=== PATIENT | female | born 1950 | race African-American/Black ===

== ENCOUNTER → 2018-04-09 | Outpatient (CLI) | payer MEDICARE, MEDICAID | END | disposition home or self-care (01) | LOC: MRI 09:43 | PROVIDERS: ATTEND Internal Medicine Nephrology | DX: Z12.31 Encounter for screening mammogram for malignant neoplasm of breast (principal); M47.896 Other spondylosis, lumbar region; M48.061 Spinal stenosis, lumbar region without neurogenic claudication; M54.32 Sciatica, left side | CPT/HCPCS: 72148; 72195; 77067 ==

== ENCOUNTER 2019-10-01 13:44 | Inpatient (IN) | payer MEDICARE ==
[~2019-10-01] VITALS: Ht 157.5 cm; Wt 85.3 kg
[2019-10-01] MEDS ORDERED: SODIUM CHLORIDE 0.9% 500 ML IV ONE (15:01)
[2019-10-01] MEDS ORDERED: HYDROCODONE/ACETAMINOPHEN 10/325MG TABLET PO ONE (15:15)
[2019-10-01] MEDS ORDERED: ASPIRIN 81MG TABLET PO ONE (15:15)
[2019-10-01 16:40] LABS: BASOPHILS % 0.5 % (0.0-2.0); EOSINOPHILS % 3.3 % (0.0-5.0); HEMATOCRIT. 41.5 % (36.0-48.0); HEMOGLOBIN. 13.2 g/dL (12.0-16.0); LYMPHOCYTES % 29.3 % (20.0-50.0); MEAN PLATELET VOLUME 9.5 fl (7.4-10.4); MONOCYTES % 7.5 % (2.0-8.0); NEUTROPHILS % 59.4 % (40.0-76.0); PLATELET 269 x1000/uL (130-400); RED BLOOD CELL COUNT 4.56 mill/uL (4.2-5.4)
[2019-10-01 16:46] LABS: CHLORIDE 108 mEq/L (98-107)
[2019-10-01] MEDS ORDERED: LORAZEPAM 2MG/ML CPJ IV PRN (23:00)
[2019-10-01] MEDS ORDERED: CLONIDINE 0.1MG TABLET PO PRN (23:00)
[2019-10-01] MEDS ORDERED: IPRATROPIUM/ALBUTEROL 0.5-3(2.5)MG/3ML NEB NEB PRN (23:00)
[2019-10-01] MEDS ORDERED: ENOXAPARIN 40MG/0.4ML SYR SUBCUT SCH (23:00)
[2019-10-01] MEDS ORDERED: ONDANSETRON HCL 4MG/2ML INJ IV PRN (23:00)
[2019-10-01] MEDS ORDERED: MORPHINE SULFATE 2 MG/ML CPJ (NOT FOR IM USE) IV PRN (23:25)
[2019-10-01] MEDS: METHYLPREDNISOLONE SOD SUCC 125 MG/2 ML VIAL IV SCH (23:39)
[2019-10-01] MEDS: HYDROCODONE/ACETAMINOPHEN 5/325MG TABLET PO PRN (23:39)
[2019-10-02] MEDS: HYDROCODONE/ACETAMINOPHEN 5/325MG TABLET PO PRN ×3 (04:50→21:56)
[2019-10-02 06:34] LABS: CREATINE KINASE 66 IU/L (26-192)
[2019-10-02 06:35] LABS: CREATINE KINASE MB FRACTION < 1.0 ng/mL (0.5-3.6)
[2019-10-02 14:00] VITALS: BP 99/46
[2019-10-02 14:23] VITALS: BP 99/46
[2019-10-02] MEDS: METHYLPREDNISOLONE SOD SUCC 125 MG/2 ML VIAL IV SCH ×3 (15:09→18:00)
[2019-10-02] MEDS: ENOXAPARIN 40MG/0.4ML SYR SUBCUT SCH (15:10)
[2019-10-02 16:00] VITALS: BP 101/46
[2019-10-02] MEDS ORDERED: ISOS20TA57 PO (16:06)
[2019-10-02] MEDS ORDERED: ALBU18HF2 IH (16:06)
[2019-10-02] MEDS ORDERED: FURO40TA5 MT (16:06)
[2019-10-02] MEDS ORDERED: ISOS120T9 PO (16:06)
[2019-10-02] MEDS ORDERED: ASPI-1497 MT (16:06)
[2019-10-02] MEDS ORDERED: CELE200C MT (16:06)
[2019-10-02] MEDS ORDERED: LISI10TA5 MT (16:06)
[2019-10-02] MEDS ORDERED: SIMV40TA2 MT (16:06)
[2019-10-02 16:57] LABS: CREATINE KINASE 66 IU/L (26-192)
[2019-10-02 17:00] LABS: CREATINE KINASE MB FRACTION < 1.0 ng/mL (0.5-3.6)
[2019-10-02 20:00] VITALS: BP 107/38
[2019-10-02] MEDS: HYDROCORTISONE 1% CREAM 30GM TOP SCH (21:53)
[2019-10-03] VITALS: BP 100/33
[2019-10-03] MEDS: METHYLPREDNISOLONE SOD SUCC 125 MG/2 ML VIAL IV SCH ×2 (00:16→06:11)
[2019-10-03 04:00] VITALS: BP 116/37
[2019-10-03] MEDS ORDERED: DEXTROSE 50% WATER 50ML SYRINGE IV PRN (05:45)
[2019-10-03] MEDS: BLOOD SUGAR DIAGNOSTIC STRIP TEST SCH ×4 (06:22→21:00)
[2019-10-03] MEDS: INSULIN LISPRO 100 UNITS/ML SUBCUT SCH ×4 (06:22→21:00)
[2019-10-03] MEDS: HYDROCODONE/ACETAMINOPHEN 5/325MG TABLET PO PRN ×2 (06:35→10:51)
[2019-10-03 07:43] LABS: HEMATOCRIT. 41.3 % (36.0-48.0); HEMOGLOBIN. 13.4 g/dL (12.0-16.0); LYMPHOCYTES % 11.4 % (20.0-50.0); MEAN CORPUSCULAR HEMOGLOBIN 29.3 pg (28.0-32.0); MEAN CORPUSCULAR VOLUME 90.2 fL (81.0-99.0); MEAN PLATELET VOLUME 9.6 fl (7.4-10.4); MONOCYTES % 2.3 % (2.0-8.0); NEUTROPHILS % 86.3 % (40.0-76.0); PLATELET 279 x1000/uL (130-400); RED BLOOD CELL COUNT 4.58 mill/uL (4.2-5.4); RED CELL DISTRIBUTION WIDTH 15.8 % (11.6-14.6)
[2019-10-03 08:00] VITALS: BP 109/44
[2019-10-03 08:19] LABS: PHOSPHORUS 3.1 mg/dL (2.5-4.9)
[2019-10-03] MEDS ORDERED: AMLODIPINE 10MG TABLET PO SCH (09:00)
[2019-10-03] MEDS: ENOXAPARIN 40MG/0.4ML SYR SUBCUT SCH (09:15)
[2019-10-03] MEDS: HYDROCORTISONE 1% CREAM 30GM TOP SCH ×2 (09:15→22:10)
[2019-10-03 12:00] VITALS: BP 106/50
[2019-10-03] MEDS ORDERED: HYDRALAZINE 20MG/ML VIAL IV PRN (15:15)
[2019-10-03] MEDS ORDERED: ACETAMINOPHEN 650MG SUPP PR PRN (15:15)
[2019-10-03] MEDS ORDERED: BISACODYL 10MG SUPP PR PRN (15:15)
[2019-10-03] MEDS ORDERED: GUAIFENESIN 200MG/10ML SUGAR FREE UDC PO PRN (15:15)
[2019-10-03 16:00] VITALS: BP 123/47
[2019-10-03] MEDS: METHYLPREDNISOLONE SOD SUCC 40 MG/ML VIAL IV SCH (16:49)
[2019-10-03] MEDS: NYSTATIN POWDER 15GM TOP SCH (17:00)
[2019-10-03] MEDS: CEFTRIAXONE 1 G PREMIX 50 ML IV SCH (17:01)
[2019-10-03 17:03] LABS: CLARITY URINE CLEAR (CLEAR); COLOR URINE YELLOW (YELLOW); KETONES URINE NEGATIVE (NEGATIVE); LEUKOCYTE ESTERASE URINE TRACE (NEGATIVE); NITRITE URINE NEGATIVE (NEGATIVE); OCCULT BLOOD URINE TRACE (NEGATIVE); PROTEIN URINE NEGATIVE (NEGATIVE); SPECIFIC GRAVITY URINE 1.009 (1.005-1.030); UROBILINOGEN URINE 0.2 E.U./dL (0.2-1.0)
[2019-10-03 20:00] VITALS: BP 148/62
[2019-10-04] VITALS: BP 153/71
[2019-10-04 01:13] LABS: PROTHROMBIN TIME 10.2 sec (9.6-11.0)
[2019-10-04] MEDS: METHYLPREDNISOLONE SOD SUCC 40 MG/ML VIAL IV SCH ×2 (03:21→16:27)
[2019-10-04 04:00] VITALS: BP 118/46
[2019-10-04] MEDS: INSULIN LISPRO 100 UNITS/ML SUBCUT SCH ×3 (06:52→16:47)
[2019-10-04] MEDS: BLOOD SUGAR DIAGNOSTIC STRIP TEST SCH ×3 (06:52→16:27)
[2019-10-04 08:00] VITALS: BP 100/61
[2019-10-04 08:14] LABS: HEMATOCRIT. 40.4 % (36.0-48.0); HEMOGLOBIN. 13.1 g/dL (12.0-16.0); LYMPHOCYTES % 8.6 % (20.0-50.0); MEAN CORPUSCULAR VOLUME 89.4 fL (81.0-99.0); MEAN PLATELET VOLUME 9.7 fl (7.4-10.4); MONOCYTES % 3.1 % (2.0-8.0); NEUTROPHILS % 88.3 % (40.0-76.0); PLATELET 260 x1000/uL (130-400); RED BLOOD CELL COUNT 4.52 mill/uL (4.2-5.4); RED CELL DISTRIBUTION WIDTH 15.7 % (11.6-14.6)
[2019-10-04 08:46] LABS: T4 FREE 0.78 ng/dL (0.76-1.46)
[2019-10-04] MEDS: ENOXAPARIN 40MG/0.4ML SYR SUBCUT SCH (09:28)
[2019-10-04] MEDS: HYDROCORTISONE 1% CREAM 30GM TOP SCH ×2 (09:28→20:59)
[2019-10-04 12:00] VITALS: BP 114/50
[2019-10-04] MEDS: NYSTATIN POWDER 15GM TOP SCH ×2 (12:08→16:31)
[2019-10-04] MEDS: CEFTRIAXONE 1 G PREMIX 50 ML IV SCH (14:20)
[2019-10-04 16:00] VITALS: BP 131/51
[2019-10-04] MEDS: ACETAMINOPHEN 325MG TABLET PO PRN (16:27)
[2019-10-04 20:00] VITALS: BP_SYST 128; BP_SYST 132; BP_SYST 142; BP_DIAS 53; BP_DIAS 63; BP_DIAS 68
[2019-10-05] VITALS (7 sets, daily range): BP systolic 112–180; BP diastolic 35–65
[2019-10-05] MEDS: ACETAMINOPHEN 325MG TABLET PO PRN ×2 (03:37→21:54)
[2019-10-05] MEDS: METHYLPREDNISOLONE SOD SUCC 40 MG/ML VIAL IV SCH ×2 (04:13→17:28)
[2019-10-05] MEDS: INSULIN LISPRO 100 UNITS/ML SUBCUT SCH ×4 (07:15→20:32)
[2019-10-05 09:05] LABS: BASOPHILS % 0.2 % (0.0-2.0); HEMATOCRIT. 40.8 % (36.0-48.0); HEMOGLOBIN. 12.9 g/dL (12.0-16.0); LYMPHOCYTES % 10.5 % (20.0-50.0); MEAN CORPUSCULAR VOLUME 91.3 fL (81.0-99.0); MONOCYTES % 3.9 % (2.0-8.0); NEUTROPHILS % 85.4 % (40.0-76.0); RED BLOOD CELL COUNT 4.46 mill/uL (4.2-5.4); RED CELL DISTRIBUTION WIDTH 16.1 % (11.6-14.6)
[2019-10-05] MEDS: ENOXAPARIN 40MG/0.4ML SYR SUBCUT SCH (09:18)
[2019-10-05] MEDS: NYSTATIN POWDER 15GM TOP SCH ×3 (09:18→17:28)
[2019-10-05] MEDS: HYDROCORTISONE 1% CREAM 30GM TOP SCH ×2 (09:19→21:39)
[2019-10-05 09:31] LABS: CHLORIDE 113 mEq/L (98-107)
[2019-10-05 10:57] LABS: MEAN PLATELET VOLUME 9.7 fl (7.4-10.4); PLATELET 246 x1000/uL (130-400)
[2019-10-05 10:58] LABS: PLATELET ESTIMATE NORMAL
[2019-10-05] MEDS: BLOOD SUGAR DIAGNOSTIC STRIP TEST SCH ×3 (11:53→20:32)
[2019-10-05] MEDS: CEFTRIAXONE 1 G PREMIX 50 ML IV SCH (14:43)
[2019-10-06] VITALS: BP 127/44
[2019-10-06] MEDS: METHYLPREDNISOLONE SOD SUCC 40 MG/ML VIAL IV SCH ×2 (03:24→17:33)
[2019-10-06 04:00] VITALS: BP 138/57
[2019-10-06] MEDS: BLOOD SUGAR DIAGNOSTIC STRIP TEST SCH ×4 (05:45→21:26)
[2019-10-06] MEDS: INSULIN LISPRO 100 UNITS/ML SUBCUT SCH ×4 (06:15→21:00)
[2019-10-06 08:00] VITALS: BP 117/41
[2019-10-06] MEDS: ENOXAPARIN 30MG/0.3ML SYR SUBCUT SCH ×2 (08:19→21:26)
[2019-10-06] MEDS: NYSTATIN POWDER 15GM TOP SCH ×3 (08:19→17:34)
[2019-10-06] MEDS: HYDROCORTISONE 1% CREAM 30GM TOP SCH ×2 (08:19→21:27)
[2019-10-06] MEDS: HYDROCODONE/ACETAMINOPHEN 5/325MG TABLET PO PRN (11:49)
[2019-10-06 12:00] VITALS: BP 116/59
[2019-10-06] MEDS: CEFTRIAXONE 1 G PREMIX 50 ML IV SCH (14:04)
[2019-10-06 16:00] VITALS: BP 114/54
[2019-10-06 20:00] VITALS: BP 161/66
[2019-10-07] VITALS: BP 136/77
[2019-10-07 04:00] VITALS: BP_SYST 135; BP_SYST 145; BP_SYST 171; BP_DIAS 62; BP_DIAS 77; BP_DIAS 93
[2019-10-07] MEDS: METHYLPREDNISOLONE SOD SUCC 40 MG/ML VIAL IV SCH (05:26)
[2019-10-07] MEDS: BLOOD SUGAR DIAGNOSTIC STRIP TEST SCH ×4 (05:53→21:21)
[2019-10-07] MEDS: INSULIN LISPRO 100 UNITS/ML SUBCUT SCH ×4 (05:53→21:00)
[2019-10-07 06:47] LABS: BASOPHILS % 0.1 % (0.0-2.0); HEMATOCRIT. 41.2 % (36.0-48.0); HEMOGLOBIN. 13.7 g/dL (12.0-16.0); LYMPHOCYTES % 12.7 % (20.0-50.0); MEAN CORPUSCULAR HEMOGLOBIN 29.6 pg (28.0-32.0); MEAN CORPUSCULAR VOLUME 89.1 fL (81.0-99.0); MEAN PLATELET VOLUME 9.6 fl (7.4-10.4); MONOCYTES % 5.3 % (2.0-8.0); NEUTROPHILS % 81.9 % (40.0-76.0); PLATELET 250 x1000/uL (130-400); RED BLOOD CELL COUNT 4.62 mill/uL (4.2-5.4); RED CELL DISTRIBUTION WIDTH 15.5 % (11.6-14.6)
[2019-10-07 08:00] VITALS: BP 124/57
[2019-10-07] MEDS: NYSTATIN POWDER 15GM TOP SCH ×3 (08:20→17:40)
[2019-10-07] MEDS: HYDROCORTISONE 1% CREAM 30GM TOP SCH ×2 (08:20→21:27)
[2019-10-07] MEDS: ENOXAPARIN 30MG/0.3ML SYR SUBCUT SCH (08:21)
[2019-10-07] MEDS: ACETAMINOPHEN 325MG TABLET PO PRN (08:21)
[2019-10-07] MEDS ORDERED: SODIUM CHLORIDE 0.45% 250 ML IV ONE ×3 (11:15→17:15)
[2019-10-07 12:00] VITALS: BP 131/59
[2019-10-07] MEDS: CEFTRIAXONE 1 G PREMIX 50 ML IV SCH (15:06)
[2019-10-07 16:00] VITALS: BP 122/57
[2019-10-07] MEDS ORDERED: MORPHINE SULFATE 2 MG/ML CPJ (NOT FOR IM USE) IV PRN (16:45)
[2019-10-07] MEDS ORDERED: HYDROCODONE/ACETAMINOPHEN 5/325MG TABLET PO PRN (16:45)
[2019-10-07] MEDS: DEXAMETHASONE 4MG/ML 1ML VIAL IV SCH (17:40)
[2019-10-07 20:00] VITALS: BP 136/59
[2019-10-08] VITALS (39 sets, daily range): BP systolic 75–186; BP diastolic 48–99
[2019-10-08] MEDS: DEXAMETHASONE 4MG/ML 1ML VIAL IV SCH ×4 (00:25→18:49)
[2019-10-08] MEDS: BLOOD SUGAR DIAGNOSTIC STRIP TEST SCH ×4 (06:16→21:15)
[2019-10-08] MEDS: INSULIN LISPRO 100 UNITS/ML SUBCUT SCH ×4 (06:16→21:25)
[2019-10-08] MEDS ORDERED: LIDOCAINE HCL/EPINEPHRINE 1%-EPI 1:100,000 20 ML VIAL ONE (07:59)
[2019-10-08] MEDS ORDERED: BACITRACIN 50,000 UNITS/VIAL ONE (07:59)
[2019-10-08] MEDS ORDERED: THROMBIN (BOVINE) 5000 UNITS/VIAL TOP ONE (07:59)
[2019-10-08] MEDS ORDERED: NORMAL SALINE 0.9% 10 ML SYR ONE (07:59)
[2019-10-08] MEDS: NYSTATIN POWDER 15GM TOP SCH ×3 (08:21→17:00)
[2019-10-08] MEDS: HYDROCORTISONE 1% CREAM 30GM TOP SCH ×2 (08:21→21:00)
[2019-10-08] MEDS ORDERED: FENTANYL CITRATE/PF 50MCG/ML 2ML VIAL ONE (09:42)
[2019-10-08] MEDS ORDERED: MIDAZOLAM HCL 2 MG/2 ML VIAL ONE (09:42)
[2019-10-08] MEDS ORDERED: ROCURONIUM BROMIDE 10MG/ML VIAL 5ML IV ONE (09:44)
[2019-10-08] MEDS ORDERED: PROPOFOL 200MG/20ML VIAL IV ONE ×3 (09:45→11:31)
[2019-10-08] MEDS ORDERED: LIDOCAINE HCL/PF 1% 10 MG/ML 5ML VIAL ONE (09:45)
[2019-10-08] MEDS ORDERED: SUCCINYLCHOLINE CHLORIDE 200MG/10ML IV ONE (09:46)
[2019-10-08] MEDS ORDERED: GLYCOPYRROLATE 0.2 MG/ML 2ML VIAL ONE (10:47)
[2019-10-08] MEDS ORDERED: EPHEDRINE SULFATE 50MG/ML VIAL ONE (10:49)
[2019-10-08] MEDS ORDERED: SODIUM CHLORIDE 0.9% 10ML VIAL ONE (10:49)
[2019-10-08] MEDS ORDERED: CEFAZOLIN SODIUM 1000MG/VIAL ONE (11:15)
[2019-10-08] MEDS ORDERED: HYDRALAZINE 20MG/ML VIAL ONE (11:28)
[2019-10-08] MEDS ORDERED: HYDROCORTISONE SOD SUCCINATE 100 MG/2 ML VIAL ONE (11:48)
[2019-10-08] MEDS ORDERED: ONDANSETRON HCL 4MG/2ML INJ ONE (12:23)
[2019-10-08] MEDS ORDERED: CEFAZOLIN SODIUM 1000MG/VIAL IV SCH (14:00)
[2019-10-08] MEDS: CEFAZOLIN 1000MG PREMIX 50 ML IV SCH ×2 (14:00→21:25)
[2019-10-08] MEDS: DEXT 5%/LACTATED RINGERS 1,000 ML IV SCH (14:03)
[2019-10-08] MEDS: MORPHINE SULFATE 4 MG/ML CPJ (NOT FOR IM USE) IV PRN ×2 (14:24→16:59)
[2019-10-08] MEDS: NICARDIPINE 100 MG in SODIUM CHLORIDE 0.9% 60 ML IV PRN (15:00)
[2019-10-08] MEDS ORDERED: MORPHINE SULFATE 2 MG/ML CPJ (NOT FOR IM USE) IV NR (16:15)
[2019-10-08 16:59] LABS: BG BASE EXCESS -3.9 mmol/L (-2.0-2.0); BG CARBOXYHEMOGLOBIN 0.4 % (0.5-1.5); BG DEOXYHEMOGLOBIN 1.1 % (0.0-5.0); BG FRACTION INSPIRED OXYGEN 50; BG HCO3 ACT 20.7 mmol/L (22.0-26.0); BG METHEMOGLOBIN 0.3 % (0.0-1.5); BG OXYGEN SATURATION 98.9 % (92.0-98.5); BG OXYHEMOGLOBIN 98.2 % (94.0-97.0); BG PCO2 36.3 mmHg (35.0-45.0); BG PH 7.374 (7.350-7.450); BG PO2 176.2 mmHg (75.0-100.0); BG PRESSURE SUPPORT 10; BG SAMPLE SITE A-LINE; BG TIDAL VOLUME(mL) 500 mL; BG TOTAL HEMOGLOBIN 13.9 g/dL (12.0-18.0); BG VENT MODE VENT - SIMV; BG VENT RATE 9 set
[2019-10-09] VITALS (90 sets, daily range): BP systolic 63–173; BP diastolic 40–135
[2019-10-09] MEDS: DEXT 5%/LACTATED RINGERS 1,000 ML IV SCH ×3 (00:10→22:23)
[2019-10-09] MEDS: DEXAMETHASONE 4MG/ML 1ML VIAL IV SCH ×4 (00:10→18:24)
[2019-10-09] MEDS: MORPHINE SULFATE 4 MG/ML CPJ (NOT FOR IM USE) IV PRN ×8 (02:01→21:20)
[2019-10-09] MEDS: CEFAZOLIN 1000MG PREMIX 50 ML IV SCH ×3 (05:29→21:20)
[2019-10-09 05:34] LABS: HEMATOCRIT. 41.8 % (36.0-48.0); HEMOGLOBIN. 13.5 g/dL (12.0-16.0); MEAN CORPUSCULAR HEMOGLOBIN 28.9 pg (28.0-32.0); MEAN CORPUSCULAR VOLUME 89.5 fL (81.0-99.0); MEAN PLATELET VOLUME 9.1 fl (7.4-10.4); PLATELET 290 x1000/uL (130-400); RED BLOOD CELL COUNT 4.67 mill/uL (4.2-5.4); RED CELL DISTRIBUTION WIDTH 15.5 % (11.6-14.6)
[2019-10-09] MEDS: BLOOD SUGAR DIAGNOSTIC STRIP TEST SCH ×4 (06:08→21:19)
[2019-10-09] MEDS: INSULIN LISPRO 100 UNITS/ML SUBCUT SCH ×4 (06:09→21:00)
[2019-10-09 07:56] LABS: PLATELET ESTIMATE NORMAL
[2019-10-09] MEDS: HYDROCORTISONE 1% CREAM 30GM TOP SCH ×2 (09:00→20:11)
[2019-10-09] MEDS: IPRATROPIUM/ALBUTEROL 0.5-3(2.5)MG/3ML NEB HHN PRN ×3 (09:11→20:09)
[2019-10-09] MEDS: NICARDIPINE 100 MG in SODIUM CHLORIDE 0.9% 60 ML IV PRN (11:52)
[2019-10-09] MEDS: NYSTATIN POWDER 15GM TOP SCH ×3 (12:04→18:25)
[2019-10-09 14:26] LABS: BG BASE EXCESS -1.6 mmol/L (-2.0-2.0); BG CARBOXYHEMOGLOBIN 0.2 % (0.5-1.5); BG DEOXYHEMOGLOBIN 2.5 % (0.0-5.0); BG HCO3 ACT 23.2 mmol/L (22.0-26.0); BG METHEMOGLOBIN 0.2 % (0.0-1.5); BG OXYGEN SATURATION 97.5 % (92.0-98.5); BG OXYHEMOGLOBIN 97.1 % (94.0-97.0); BG PCO2 39.6 mmHg (35.0-45.0); BG PH 7.386 (7.350-7.450); BG PO2 113.3 mmHg (75.0-100.0); BG SAMPLE SITE A-LINE; BG TIDAL VOLUME(mL) 500 mL; BG TOTAL HEMOGLOBIN 13.5 g/dL (12.0-18.0); BG VENT MODE VENT - SIMV; BG VENT RATE 9 set
[2019-10-10] VITALS (67 sets, daily range): BP systolic 85–162; BP diastolic 42–124
[2019-10-10] MEDS: IPRATROPIUM/ALBUTEROL 0.5-3(2.5)MG/3ML NEB HHN PRN (00:18)
[2019-10-10] MEDS: MORPHINE SULFATE 4 MG/ML CPJ (NOT FOR IM USE) IV PRN (01:01)
[2019-10-10 05:38] LABS: HEMATOCRIT. 39.9 % (36.0-48.0); HEMOGLOBIN. 13.2 g/dL (12.0-16.0); MEAN CORPUSCULAR HEMOGLOBIN 29.3 pg (28.0-32.0); MEAN PLATELET VOLUME 9.4 fl (7.4-10.4); PLATELET 283 x1000/uL (130-400); RED BLOOD CELL COUNT 4.48 mill/uL (4.2-5.4); RED CELL DISTRIBUTION WIDTH 15.9 % (11.6-14.6)
[2019-10-10] MEDS: BLOOD SUGAR DIAGNOSTIC STRIP TEST SCH ×4 (06:07→21:17)
[2019-10-10] MEDS: INSULIN LISPRO 100 UNITS/ML SUBCUT SCH ×4 (06:07→21:00)
[2019-10-10] MEDS: CEFAZOLIN 1000MG PREMIX 50 ML IV SCH (06:29)
[2019-10-10 08:49] LABS: BG BASE EXCESS 1.1 mmol/L (-2.0-2.0); BG CARBOXYHEMOGLOBIN 0.3 % (0.5-1.5); BG DEOXYHEMOGLOBIN 2.2 % (0.0-5.0); BG FRACTION INSPIRED OXYGEN 40; BG HCO3 ACT 25.5 mmol/L (22.0-26.0); BG METHEMOGLOBIN 0.3 % (0.0-1.5); BG OXYGEN SATURATION 97.8 % (92.0-98.5); BG OXYHEMOGLOBIN 97.2 % (94.0-97.0); BG PCO2 39.9 mmHg (35.0-45.0); BG PH 7.423 (7.350-7.450); BG PRESSURE SUPPORT 10; BG SAMPLE SITE RIGHT BRACHIAL; BG TIDAL VOLUME(mL) 500 mL; BG TOTAL HEMOGLOBIN 13.4 g/dL (12.0-18.0); BG VENT MODE VENT - SIMV; BG VENT RATE 12 set
[2019-10-10] MEDS: HYDROCORTISONE 1% CREAM 30GM TOP SCH ×2 (09:21→21:17)
[2019-10-10] MEDS: NYSTATIN POWDER 15GM TOP SCH ×3 (09:21→17:00)
[2019-10-10] MEDS: HYDROMORPHONE HCL/PF 2MG/ML CPJ IV PRN ×2 (09:22→22:36)
[2019-10-10 11:01] LABS: BG BASE EXCESS 0.4 mmol/L (-2.0-2.0); BG CARBOXYHEMOGLOBIN 0.3 % (0.5-1.5); BG DEOXYHEMOGLOBIN 1.6 % (0.0-5.0); BG FRACTION INSPIRED OXYGEN 40; BG METHEMOGLOBIN 0.3 % (0.0-1.5); BG OXYGEN SATURATION 98.4 % (92.0-98.5); BG OXYHEMOGLOBIN 97.8 % (94.0-97.0); BG PCO2 31.2 mmHg (35.0-45.0); BG PH 7.486 (7.350-7.450); BG PO2 146.6 mmHg (75.0-100.0); BG PRESSURE SUPPORT 8; BG SAMPLE SITE RIGHT RADIAL; BG TOTAL HEMOGLOBIN 13.5 g/dL (12.0-18.0); BG VENT MODE VENT - CPAP
[2019-10-10] MEDS ORDERED: FUROSEMIDE 40MG/4ML VIAL IVP NR (11:45)
[2019-10-10] MEDS: DEXT 5%/LACTATED RINGERS 1,000 ML IV SCH ×2 (12:00→19:15)
[2019-10-10] MEDS: NICARDIPINE 100 MG in SODIUM CHLORIDE 0.9% 60 ML IV PRN (15:07)
[2019-10-10] MEDS ORDERED: LEVOFLOXACIN 500MG TABLET PO NR (15:30)
[2019-10-10 16:20] LABS: BG BASE EXCESS 4.2 mmol/L (-2.0-2.0); BG CARBOXYHEMOGLOBIN 0.3 % (0.5-1.5); BG FRACTION INSPIRED OXYGEN 35; BG METHEMOGLOBIN 0.2 % (0.0-1.5); BG OXYHEMOGLOBIN 94.5 % (94.0-97.0); BG PCO2 49.3 mmHg (35.0-45.0); BG PH 7.402 (7.350-7.450); BG PO2 81.1 mmHg (75.0-100.0); BG SAMPLE SITE RIGHT RADIAL; BG TOTAL HEMOGLOBIN 13.6 g/dL (12.0-18.0); BG VENT MODE MASK - AEROSOL
[2019-10-10] MEDS ORDERED: LEVOFLOXACIN 500MG PREMIX 100 ML IV SCH (17:30)
[2019-10-11] VITALS (98 sets, daily range): BP systolic 75–180; BP diastolic 21–131
[2019-10-11] MEDS: HYDROMORPHONE HCL/PF 2MG/ML CPJ IV PRN (02:44)
[2019-10-11 03:42] LABS: PLATELET ESTIMATE NORMAL
[2019-10-11 05:53] LABS: HEMATOCRIT. 37.2 % (36.0-48.0); MEAN CORPUSCULAR HEMOGLOBIN 28.8 pg (28.0-32.0); MEAN PLATELET VOLUME 9.3 fl (7.4-10.4); PLATELET 258 x1000/uL (130-400); RED BLOOD CELL COUNT 4.18 mill/uL (4.2-5.4); RED CELL DISTRIBUTION WIDTH 15.7 % (11.6-14.6)
[2019-10-11] MEDS: DEXT 5%/LACTATED RINGERS 1,000 ML IV SCH (05:58)
[2019-10-11] MEDS: INSULIN LISPRO 100 UNITS/ML SUBCUT SCH ×4 (06:46→21:00)
[2019-10-11] MEDS: BLOOD SUGAR DIAGNOSTIC STRIP TEST SCH ×4 (06:46→21:45)
[2019-10-11] MEDS: HYDROCORTISONE 1% CREAM 30GM TOP SCH ×2 (08:44→21:00)
[2019-10-11] MEDS: NYSTATIN POWDER 15GM TOP SCH ×3 (08:44→16:46)
[2019-10-11] MEDS: LEVOFLOXACIN 250MG TABLET PO SCH (11:19)
[2019-10-11 11:24] LABS: PLATELET ESTIMATE NORMAL
[2019-10-11] MEDS: NICARDIPINE 100 MG in SODIUM CHLORIDE 0.9% 60 ML IV PRN (13:05)
[2019-10-11] MEDS: LISINOPRIL 10MG TABLET PO SCH (15:25)
[2019-10-11] MEDS: ACETAMINOPHEN 325MG TABLET PO PRN (15:26)
[2019-10-12] VITALS (56 sets, daily range): BP systolic 60–155; BP diastolic 28–126
[2019-10-12 06:00] LABS: BASOPHILS % 0.2 % (0.0-2.0); EOSINOPHILS % 0.1 % (0.0-5.0); HEMATOCRIT. 46.4 % (36.0-48.0); HEMOGLOBIN. 14.8 g/dL (12.0-16.0); LYMPHOCYTES % 10.6 % (20.0-50.0); MEAN CORPUSCULAR HEMOGLOBIN 28.8 pg (28.0-32.0); MEAN CORPUSCULAR VOLUME 90.3 fL (81.0-99.0); MEAN PLATELET VOLUME 9.8 fl (7.4-10.4); MONOCYTES % 8.6 % (2.0-8.0); NEUTROPHILS % 80.5 % (40.0-76.0); PLATELET 279 x1000/uL (130-400); RED BLOOD CELL COUNT 5.14 mill/uL (4.2-5.4); RED CELL DISTRIBUTION WIDTH 15.6 % (11.6-14.6)
[2019-10-12] MEDS: INSULIN LISPRO 100 UNITS/ML SUBCUT SCH ×4 (06:06→20:12)
[2019-10-12] MEDS: BLOOD SUGAR DIAGNOSTIC STRIP TEST SCH ×4 (06:06→20:12)
[2019-10-12] MEDS: NICARDIPINE 100 MG in SODIUM CHLORIDE 0.9% 60 ML IV PRN (06:50)
[2019-10-12] MEDS: NYSTATIN POWDER 15GM TOP SCH ×3 (08:12→16:47)
[2019-10-12] MEDS: HYDROCORTISONE 1% CREAM 30GM TOP SCH ×3 (08:14→20:16)
[2019-10-12] MEDS: LISINOPRIL 10MG TABLET PO SCH (08:43)
[2019-10-12] MEDS: LEVOFLOXACIN 250MG TABLET PO SCH (11:35)
[2019-10-12] MEDS: AMLODIPINE 5MG TABLET PO SCH (13:53)
[2019-10-13] VITALS: BP 103/82
[2019-10-13 04:00] VITALS: BP 143/83
[2019-10-13] MEDS: INSULIN LISPRO 100 UNITS/ML SUBCUT SCH ×4 (05:56→21:00)
[2019-10-13] MEDS: BLOOD SUGAR DIAGNOSTIC STRIP TEST SCH ×4 (05:56→21:37)
[2019-10-13 07:09] LABS: BASOPHILS % 0.2 % (0.0-2.0); EOSINOPHILS % 0.4 % (0.0-5.0); HEMATOCRIT. 41.6 % (36.0-48.0); HEMOGLOBIN. 13.4 g/dL (12.0-16.0); LYMPHOCYTES % 8.3 % (20.0-50.0); MEAN CORPUSCULAR HEMOGLOBIN 28.6 pg (28.0-32.0); MEAN CORPUSCULAR VOLUME 88.6 fL (81.0-99.0); MEAN PLATELET VOLUME 9.2 fl (7.4-10.4); MONOCYTES % 6.5 % (2.0-8.0); NEUTROPHILS % 84.6 % (40.0-76.0); PLATELET 278 x1000/uL (130-400); RED BLOOD CELL COUNT 4.69 mill/uL (4.2-5.4); RED CELL DISTRIBUTION WIDTH 15.1 % (11.6-14.6)
[2019-10-13] MEDS: HYDROCORTISONE 1% CREAM 30GM TOP SCH ×2 (09:00→21:00)
[2019-10-13] MEDS: ACETAMINOPHEN 325MG TABLET PO PRN (09:24)
[2019-10-13] MEDS: AMLODIPINE 5MG TABLET PO SCH (09:24)
[2019-10-13] MEDS: NYSTATIN POWDER 15GM TOP SCH ×3 (09:25→17:01)
[2019-10-13] MEDS: LISINOPRIL 10MG TABLET PO SCH (09:25)
[2019-10-13] MEDS: LEVOFLOXACIN 250MG TABLET PO SCH (11:45)
[2019-10-13] MEDS ORDERED: VANCOMYCIN 1500MG in DEXTROSE 5% WATER 250ML IV NR (14:00)
[2019-10-13 14:28] LABS: CLARITY URINE CLOUDY (CLEAR); COLOR URINE YELLOW (YELLOW); KETONES URINE NEGATIVE (NEGATIVE); LEUKOCYTE ESTERASE URINE NEGATIVE (NEGATIVE); NITRITE URINE NEGATIVE (NEGATIVE); OCCULT BLOOD URINE 2+ (NEGATIVE); PROTEIN URINE 1+ (NEGATIVE); SPECIFIC GRAVITY URINE 1.017 (1.005-1.030); UROBILINOGEN URINE 0.2 E.U./dL (0.2-1.0)
[2019-10-13 20:00] VITALS: BP 109/75
[2019-10-14] VITALS: BP 125/84
[2019-10-14] MEDS: LORAZEPAM 2MG/ML CPJ IV PRN ×3 (02:45→14:41)
[2019-10-14 04:39] VITALS: BP 103/64
[2019-10-14] MEDS ORDERED: VANCOMYCIN 750 MG PREMIX 150 ML IV SCH (06:00)
[2019-10-14] MEDS: INSULIN LISPRO 100 UNITS/ML SUBCUT SCH ×4 (06:51→20:08)
[2019-10-14] MEDS: BLOOD SUGAR DIAGNOSTIC STRIP TEST SCH ×4 (06:51→20:07)
[2019-10-14 07:18] LABS: BASOPHILS % 0.2 % (0.0-2.0); HEMATOCRIT. 37.2 % (36.0-48.0); LYMPHOCYTES % 9.8 % (20.0-50.0); MEAN CORPUSCULAR HEMOGLOBIN 28.8 pg (28.0-32.0); MEAN CORPUSCULAR VOLUME 89.6 fL (81.0-99.0); MONOCYTES % 6.1 % (2.0-8.0); NEUTROPHILS % 82.9 % (40.0-76.0); PLATELET 260 x1000/uL (130-400); RED BLOOD CELL COUNT 4.15 mill/uL (4.2-5.4); RED CELL DISTRIBUTION WIDTH 15.3 % (11.6-14.6)
[2019-10-14 08:00] VITALS: BP 103/73
[2019-10-14] MEDS ORDERED: VANCOMYCIN 1 G PREMIX 200 ML IV SCH (08:00)
[2019-10-14] MEDS: AMLODIPINE 5MG TABLET PO SCH (08:12)
[2019-10-14] MEDS: LISINOPRIL 10MG TABLET PO SCH (08:12)
[2019-10-14] MEDS: HYDROCORTISONE 1% CREAM 30GM TOP SCH ×2 (08:13→23:15)
[2019-10-14] MEDS: NYSTATIN POWDER 15GM TOP SCH ×3 (08:18→17:07)
[2019-10-14] MEDS: LEVOFLOXACIN 250MG TABLET PO SCH (10:02)
[2019-10-14] MEDS: SODIUM CHLORIDE 0.45% 1,000 ML IV SCH (10:47)
[2019-10-14 12:00] VITALS: BP 117/66
[2019-10-14 12:48] LABS: BG BASE EXCESS 2.4 mmol/L (-2.0-2.0); BG CARBOXYHEMOGLOBIN 0.8 % (0.5-1.5); BG FRACTION INSPIRED OXYGEN 21; BG HCO3 ACT 24.9 mmol/L (22.0-26.0); BG METHEMOGLOBIN 0.3 % (0.0-1.5); BG OXYHEMOGLOBIN 90.9 % (94.0-97.0); BG PCO2 32.4 mmHg (35.0-45.0); BG PH 7.503 (7.350-7.450); BG PO2 59.6 mmHg (75.0-100.0); BG SAMPLE SITE RIGHT BRACHIAL; BG TOTAL HEMOGLOBIN 11.9 g/dL (12.0-18.0); BG VENT MODE ROOM AIR
[2019-10-14 16:00] VITALS: BP 107/60
[2019-10-14 16:12] LABS: EOSINOPHILS % 1.5 % (0.0-5.0); HEMOGLOBIN. 11.9 g/dL (12.0-16.0); LYMPHOCYTES % 12.9 % (20.0-50.0); MEAN CORPUSCULAR HEMOGLOBIN 29.5 pg (28.0-32.0); MEAN CORPUSCULAR VOLUME 89.1 fL (81.0-99.0); MEAN PLATELET VOLUME 9.4 fl (7.4-10.4); MONOCYTES % 7.2 % (2.0-8.0); NEUTROPHILS % 78.4 % (40.0-76.0); PLATELET 246 x1000/uL (130-400); RED BLOOD CELL COUNT 4.04 mill/uL (4.2-5.4); RED CELL DISTRIBUTION WIDTH 15.1 % (11.6-14.6)
[2019-10-14] MEDS: HYDROMORPHONE HCL/PF 2MG/ML CPJ IV PRN (17:17)
[2019-10-14 20:00] VITALS: BP 116/68
[2019-10-15] VITALS: BP 108/68
[2019-10-15] MEDS: HYDROMORPHONE HCL/PF 2MG/ML CPJ IV PRN (01:01)
[2019-10-15] MEDS: SODIUM CHLORIDE 0.45% 1,000 ML IV SCH ×2 (02:56→17:18)
[2019-10-15 04:00] VITALS: BP 111/54
[2019-10-15] MEDS: BLOOD SUGAR DIAGNOSTIC STRIP TEST SCH ×3 (06:16→17:32)
[2019-10-15] MEDS: INSULIN LISPRO 100 UNITS/ML SUBCUT SCH ×3 (06:16→17:15)
[2019-10-15 08:00] VITALS: BP 120/63
[2019-10-15 08:30] LABS: BASOPHILS % 0.2 % (0.0-2.0); HEMATOCRIT. 36.7 % (36.0-48.0); HEMOGLOBIN. 11.8 g/dL (12.0-16.0); MEAN CORPUSCULAR HEMOGLOBIN 29.1 pg (28.0-32.0); MEAN CORPUSCULAR VOLUME 90.6 fL (81.0-99.0); MEAN PLATELET VOLUME 9.5 fl (7.4-10.4); MONOCYTES % 6.1 % (2.0-8.0); NEUTROPHILS % 77.7 % (40.0-76.0); PLATELET 279 x1000/uL (130-400); RED BLOOD CELL COUNT 4.05 mill/uL (4.2-5.4); RED CELL DISTRIBUTION WIDTH 15.1 % (11.6-14.6)
[2019-10-15] MEDS ORDERED: VANCOMYCIN 1 G PREMIX 200 ML IV SCH (09:00)
[2019-10-15] MEDS: LISINOPRIL 10MG TABLET PO SCH (10:27)
[2019-10-15] MEDS: HYDROCORTISONE 1% CREAM 30GM TOP SCH (10:27)
[2019-10-15] MEDS: AMLODIPINE 5MG TABLET PO SCH (10:27)
[2019-10-15 12:00] VITALS: BP 110/61
[2019-10-15] MEDS: LEVOFLOXACIN 250MG TABLET PO SCH (13:04)
[2019-10-15] MEDS: NYSTATIN POWDER 15GM TOP SCH ×2 (15:00→18:30)
[2019-10-15] MEDS: ACETAMINOPHEN 325MG TABLET PO PRN (15:00)
[2019-10-15 16:00] VITALS: BP 101/58
[2019-10-15 17:44] VITALS: BP 144/71
== END 2019-10-15 20:15 | DRG 321 ==
LOC: ER 13:44 → 5WST 18:46 → EDBEDREQ 18:54 → ENRESERV 10-02 11:29 → MICUNO 10-08 13:20 → 5WST 10-12 15:18
PROVIDERS: ADMIT Internal Medicine; ATTEND Internal Medicine
PROC: 0RG2071 Fusion of 2 or more Cervical Vertebral Joints with Autologous Tissue Substitute, Posterior Approach, Posterior Column, Open Approach (ICD-10-PCS; principal; 2019-10-08)
PROC: 5A1945Z Respiratory Ventilation, 24-96 Consecutive Hours (ICD-10-PCS; 2019-10-08)
PROC: 01N10ZZ Release Cervical Nerve, Open Approach (ICD-10-PCS; 2019-10-08)
PROC: 4A11X4G Monitoring of Peripheral Nervous Electrical Activity, Intraoperative, External Approach (ICD-10-PCS; 2019-10-08)
PROC: BR101ZZ Fluoroscopy of Cervical Spine using Low Osmolar Contrast (ICD-10-PCS; 2019-10-08)
DX: M48.02 Spinal stenosis, cervical region (principal); J96.90 Respiratory failure, unspecified, unspecified whether with hypoxia or hypercapnia; G82.50 Quadriplegia, unspecified; G93.40 Encephalopathy, unspecified; G95.89 Other specified diseases of spinal cord; J84.9 Interstitial pulmonary disease, unspecified; I95.9 Hypotension, unspecified; I50.33 Acute on chronic diastolic (congestive) heart failure; N17.9 Acute kidney failure, unspecified; M48.04 Spinal stenosis, thoracic region; E11.22 Type 2 diabetes mellitus with diabetic chronic kidney disease; E87.8 Other disorders of electrolyte and fluid balance, not elsewhere classified; J44.1 Chronic obstructive pulmonary disease with (acute) exacerbation; E86.0 Dehydration; G47.30 Sleep apnea, unspecified; G90.8 Other disorders of autonomic nervous system; M50.01 Cervical disc disorder with myelopathy, high cervical region; R00.1 Bradycardia, unspecified; R21 Rash and other nonspecific skin eruption; M47.12 Other spondylosis with myelopathy, cervical region; N39.0 Urinary tract infection, site not specified; G89.29 Other chronic pain; R07.89 Other chest pain; J45.901 Unspecified asthma with (acute) exacerbation; M48.061 Spinal stenosis, lumbar region without neurogenic claudication; I13.0 Hypertensive heart and chronic kidney disease with heart failure and stage 1 through stage 4 chronic kidney disease, or unspecified chronic kidney disease; H54.8 Legal blindness, as defined in USA; M54.12 Radiculopathy, cervical region; E78.00 Pure hypercholesterolemia, unspecified; E66.9 Obesity, unspecified; E78.5 Hyperlipidemia, unspecified; Z68.34 Body mass index [BMI] 34.0-34.9, adult; Z22.322 Carrier or suspected carrier of Methicillin resistant Staphylococcus aureus; Z99.81 Dependence on supplemental oxygen
CPT/HCPCS: 36415; 36600; 71045; 72040; 72141; 72148; 76000; 80048; 80053; 80061; 80202; 81003; 82140; 82375; 82550; 82553; 82805; 82962; 83036; 83735; 83880; 84100; 84132; 84439; 84443; 84484; 85025; 86850; 86900; 87804; 88304; 88311; 93005; 93306; 93970; 94003; 94640; 96360; 96361; 97116; 97162; 97164; 97166; 97530; 97535; 99285; C1713; J0330; J0360; J0690; J0696; J1100; J1170; J1650; J1720; J1815; J1940; J1956; J2060; J2250; J2270; J2405; J2704; J2920; J2930; J3010; J3370; J3490; J7030; J7050; J7060; J7121; L0172

== ENCOUNTER 2021-03-22 10:14 | Inpatient (IN) | payer MEDICARE, MEDICAID ==
[~2021-03-22] VITALS: Ht 157.5 cm; Wt 81.6 kg
[~2021-03-22 10:14] MED LIST: ALBU18HF2 IH; ASPI-1497 MT; CELE200C MT; FURO40TA5 MT; ISOS120T9 PO; ISOS20TA57 PO; LISI10TA26 MT; SIMV40TA2 MT
[2021-03-22] MEDS ORDERED: HYDROCODONE/ACETAMINOPHEN 10/325MG TABLET PO ONE (11:00)
[2021-03-22 11:02] LABS: BASOPHILS % 0.3 % (0.0-2.0); EOSINOPHILS % 3.6 % (0.0-5.0); HEMATOCRIT. 35.1 % (36.0-48.0); MEAN CORPUSCULAR HEMOGLOBIN 29.5 pg (28.0-32.0); MEAN CORPUSCULAR VOLUME 86.5 fL (81.0-99.0); MEAN PLATELET VOLUME 8.4 fl (7.4-10.4); MONOCYTES % 8.4 % (2.0-8.0); NEUTROPHILS % 59.7 % (40.0-76.0); PLATELET 310 x1000/uL (130-400); RED BLOOD CELL COUNT 4.06 mill/uL (4.2-5.4); RED CELL DISTRIBUTION WIDTH 15.2 % (11.6-14.6)
[2021-03-22 11:10] LABS: CHLORIDE 113 mEq/L (98-107)
[2021-03-22 11:12] LABS: INR 0.9; PROTHROMBIN TIME 10.2 sec (9.6-11.0)
[2021-03-22 11:16] LABS: PHOSPHORUS 2.7 mg/dL (2.5-4.9)
[2021-03-22] MEDS ORDERED: HYDRALAZINE 20MG/ML VIAL IV ONE (11:30)
[2021-03-22 15:15] VITALS: BP 198/72
[2021-03-22 15:30] VITALS: BP 195/71
[2021-03-22] MEDS ORDERED: CALC0.253 PO (17:02)
[2021-03-22] MEDS ORDERED: HYDRALAZINE HCL 100MG TABLET PO NR (17:15)
[2021-03-22] MEDS ORDERED: ONDANSETRON HCL 4MG/2ML INJ IV PRN (17:15)
[2021-03-22] MEDS ORDERED: ACETAMINOPHEN 325MG TABLET PO PRN (17:15)
[2021-03-22] MEDS: AMLODIPINE 10MG TABLET PO SCH (18:13)
[2021-03-22] MEDS: HYDROCODONE/ACETAMINOPHEN 5/325MG TABLET PO PRN (18:59)
[2021-03-22 20:00] VITALS: BP 162/62
[2021-03-22] MEDS: IPRATROPIUM/ALBUTEROL 0.5-3(2.5)MG/3ML NEB HHN SCH (20:48)
[2021-03-22] MEDS: HYDRALAZINE HCL 100MG TABLET PO SCH (21:15)
[2021-03-23] VITALS: BP 133/64
[2021-03-23] MEDS: IPRATROPIUM/ALBUTEROL 0.5-3(2.5)MG/3ML NEB HHN SCH ×3 (00:36→11:57)
[2021-03-23 04:00] VITALS: BP 124/67
[2021-03-23] MEDS: HYDROCODONE/ACETAMINOPHEN 5/325MG TABLET PO PRN ×3 (05:05→14:47)
[2021-03-23] MEDS: HYDRALAZINE HCL 100MG TABLET PO SCH ×3 (06:23→21:37)
[2021-03-23 08:00] VITALS: BP 133/46
[2021-03-23] MEDS: AMLODIPINE 10MG TABLET PO SCH (09:16)
[2021-03-23 11:22] LABS: BASOPHILS % 0.5 % (0.0-2.0); EOSINOPHILS % 3.4 % (0.0-5.0); HEMATOCRIT. 35.3 % (36.0-48.0); HEMOGLOBIN. 11.6 g/dL (12.0-16.0); LYMPHOCYTES % 27.1 % (20.0-50.0); MEAN CORPUSCULAR VOLUME 88.4 fL (81.0-99.0); MEAN PLATELET VOLUME 8.6 fl (7.4-10.4); MONOCYTES % 10.6 % (2.0-8.0); NEUTROPHILS % 58.4 % (40.0-76.0); PLATELET 306 x1000/uL (130-400); RED CELL DISTRIBUTION WIDTH 15.6 % (11.6-14.6)
[2021-03-23 12:00] VITALS: BP 146/63
[2021-03-23 16:00] VITALS: BP 138/51
[2021-03-23] MEDS: DIPHENHYDRAMINE 25MG CAPSULE PO PRN (18:07)
[2021-03-23 20:00] VITALS: BP 159/61
[2021-03-23] MEDS: ATORVASTATIN CALCIUM 20MG TABLET PO SCH (21:37)
[2021-03-24] VITALS (8 sets, daily range): BP systolic 111–133; BP diastolic 50–78
[2021-03-24] MEDS: HYDROCODONE/ACETAMINOPHEN 5/325MG TABLET PO PRN ×3 (02:46→20:20)
[2021-03-24] MEDS: HYDRALAZINE HCL 100MG TABLET PO SCH ×2 (06:17→15:38)
[2021-03-24] MEDS: AMLODIPINE 10MG TABLET PO SCH (08:59)
[2021-03-24] MEDS ORDERED: ASPIRIN 81MG TABLET PO SCH (09:00)
[2021-03-24] MEDS ORDERED: ISOSORBIDE MONONITRATE 30MG TABLET SR 24HR PO SCH (09:00)
[2021-03-24] MEDS: IPRATROPIUM/ALBUTEROL 0.5-3(2.5)MG/3ML NEB HHN SCH ×4 (09:55→20:08)
[2021-03-24] MEDS: DIPHENHYDRAMINE 25MG CAPSULE PO PRN ×2 (15:34→20:19)
[2021-03-24] MEDS: ATORVASTATIN CALCIUM 20MG TABLET PO SCH (20:53)
== END 2021-03-24 21:45 | disposition home health service (06) | DRG 194 ==
LOC: ER 10:44 → 6WST 12:55 → ENRESERV 13:35
PROVIDERS: ADMIT Internal Medicine Nephrology; ATTEND Internal Medicine Nephrology
DX: I11.0 Hypertensive heart disease with heart failure (principal); N17.0 Acute kidney failure with tubular necrosis; I16.0 Hypertensive urgency; E87.8 Other disorders of electrolyte and fluid balance, not elsewhere classified; J44.9 Chronic obstructive pulmonary disease, unspecified; E78.5 Hyperlipidemia, unspecified; M19.90 Unspecified osteoarthritis, unspecified site; I50.33 Acute on chronic diastolic (congestive) heart failure; Z82.49 Family history of ischemic heart disease and other diseases of the circulatory system; Z86.73 Personal history of transient ischemic attack (TIA), and cerebral infarction without residual deficits; H54.7 Unspecified visual loss; R00.1 Bradycardia, unspecified; Z98.890 Other specified postprocedural states
CPT/HCPCS: 36415; 71045; 72141; 80048; 80053; 83735; 83880; 84100; 84484; 85025; 93005; 94640; 97162; 97530; 99291; J0360; Q0163

== ENCOUNTER → 2023-11-12 | Day surgery (SDC) | payer MEDICARE, MEDICAID ==
[~2023-11-12] MED LIST changes: +ALLO100T MT; -ASPI-1497 MT; +ASPI-1497 PO; +ATOR40TA70 PO; +BIMA2.5D4 EACHEYE; +BRIM5DRO31 EACHEYE; +CALC0.253 PO; -CELE200C MT; +DIPH25CA83 MT; +DIPH25CA83 PO; +DORZ10DR9 RIGHTEYE; -FURO40TA5 MT; +HYDR-4009 PO; -ISOS120T9 PO; -ISOS20TA57 PO; +ISOS30TA91 PO; +LIDOCAINE HCL/EPINEPHRINE 1%-EPI 1:100,000 20 ML VIAL ONE; -LISI10TA26 MT; +MONT-39 MT; +NETA2.5D EACHEYE; +NIFE-32 MT; +OMEP20TA15 MT; -SIMV40TA2 MT; +SODI15DR6 RIGHTEYE; +SODIUM BICARBONATE 4% (2.4MEQ) 5ML VIAL IV ONE; +ZOLP5TAB8 PO
== END | disposition home or self-care (01) ==
LOC: MAMMO 08:57
PROVIDERS: ATTEND Internal Medicine Nephrology
DX: N63.11 Unspecified lump in the right breast, upper outer quadrant (principal); Z79.82 Long term (current) use of aspirin; Z79.899 Other long term (current) drug therapy; Z98.890 Other specified postprocedural states; Z82.49 Family history of ischemic heart disease and other diseases of the circulatory system; Z83.3 Family history of diabetes mellitus
CPT/HCPCS: 88305; 77066; 19083; J3490 ×2; Z7610 ×6; 19285; 77062; G0279

== ENCOUNTER 2024-02-05 06:28 | Inpatient (IN) | payer MEDICARE, MEDICAID ==
[~2024-02-05] VITALS: Ht 157.5 cm; Wt 78.0 kg
[~2024-02-05 06:28] MED LIST changes: +DOCU-138 MT; +FURO40TA5 MT; +GABA-532 PO; -LIDOCAINE HCL/EPINEPHRINE 1%-EPI 1:100,000 20 ML VIAL ONE; +P20 MT; -SODIUM BICARBONATE 4% (2.4MEQ) 5ML VIAL IV ONE; +ZOLP10TA2 PO; -ZOLP5TAB8 PO
[2024-02-05 07:07] LABS: BASOPHILS % 0.5 % (0.0-2.0); EOSINOPHILS % 4.5 % (0.0-5.0); HEMATOCRIT. 40.9 % (36.0-48.0); HEMOGLOBIN. 13.4 g/dL (12.0-16.0); LYMPHOCYTES % 25.2 % (20.0-50.0); MEAN CORPUSCULAR HEMOGLOBIN 28.8 pg (28.0-32.0); MEAN CORPUSCULAR HGB CONC 32.7 g/dL (31.0-37.0); MEAN CORPUSCULAR VOLUME 87.9 fL (81.0-99.0); MEAN PLATELET VOLUME 8.6 fl (7.4-10.4); MONOCYTES % 8.6 % (2.0-8.0); NEUTROPHILS % 61.2 % (40.0-76.0); PLATELET 267 x1000/uL (130-400); RED BLOOD CELL COUNT 4.65 mill/uL (4.2-5.4); RED CELL DISTRIBUTION WIDTH 16.9 % (11.6-14.6); WHITE BLOOD COUNT 8.3 x1000/uL (4.5-11.0)
[2024-02-05 07:19] LABS: POTASSIUM 3.7 mEq/L (3.5-5.1)
[2024-02-05 07:21] LABS: CALCIUM 9.4 mg/dL (8.7-10.4)
[2024-02-05] MEDS ORDERED: LIDOCAINE HCL 1% 20ML VIAL (Pyxis) INJ ONE (07:21)
[2024-02-05] MEDS ORDERED: VERAPAMIL HCL 2.5 MG/1 ML 2ML VIAL IV ONE (07:22)
[2024-02-05] MEDS ORDERED: HEPARIN 1000 UNITS/ML 10ML ONE (07:22)
[2024-02-05 07:45] LABS: CREATININE 1.4 mg/dL (0.6-1.0)
[2024-02-05] MEDS: SODIUM CHLORIDE 0.45% 500 ML IV NR (08:10)
[2024-02-05] MEDS ORDERED: IODIXANOL 320MG/ML 100 ML BOTTLE IV ONE (10:37)
[2024-02-05] MEDS ORDERED: ATROPINE SULFATE 1MG/10ML SYR IV PRN (11:30)
[2024-02-05] MEDS: ACETAMINOPHEN 325MG TABLET PO PRN (14:09)
[2024-02-05 16:20] VITALS: BP 108/59; PULSE 63; RESP 20; TEMP 97.7
[2024-02-05 16:30] VITALS: BP 115/59; PULSE 46; RESP 23
[2024-02-05 20:00] VITALS: BP 135/63; PULSE 58; RESP 20; TEMP 97.9
[2024-02-05] MEDS ORDERED: NALOXONE HCL 0.4MG/ML VIAL IV PRN (20:30)
[2024-02-05] MEDS: HYDROCODONE/ACETAMINOPHEN 10/325MG TABLET PO PRN (20:45)
[2024-02-06] VITALS (7 sets, daily range): BP systolic 113–168; BP diastolic 56–93; PULSE 45–68; RESP 15–20; TEMP 97.8–98.2
[2024-02-06 06:32] LABS: BASOPHILS % 0.6 % (0.0-2.0); EOSINOPHILS % 4.6 % (0.0-5.0); HEMATOCRIT. 39.2 % (36.0-48.0); HEMOGLOBIN. 12.8 g/dL (12.0-16.0); LYMPHOCYTES % 31.4 % (20.0-50.0); MEAN CORPUSCULAR HEMOGLOBIN 29.2 pg (28.0-32.0); MEAN CORPUSCULAR HGB CONC 32.7 g/dL (31.0-37.0); MEAN CORPUSCULAR VOLUME 89.2 fL (81.0-99.0); MEAN PLATELET VOLUME 9.1 fl (7.4-10.4); MONOCYTES % 9.8 % (2.0-8.0); NEUTROPHILS % 53.6 % (40.0-76.0); PLATELET 238 x1000/uL (130-400); RED CELL DISTRIBUTION WIDTH 17.4 % (11.6-14.6); WHITE BLOOD COUNT 6.2 x1000/uL (4.5-11.0)
[2024-02-06 06:50] LABS: CALCIUM 9.3 mg/dL (8.7-10.4)
[2024-02-06 06:54] LABS: CREATININE 1.4 mg/dL (0.6-1.0)
[2024-02-06] MEDS: ASPIRIN 81MG TABLET PO SCH (08:41)
[2024-02-06] MEDS: FUROSEMIDE 20MG/2ML VIAL IVP NR (11:45)
[2024-02-06] MEDS ORDERED: IPRATROPIUM/ALBUTEROL 0.5-3(2.5)MG/3ML NEB HHN PRN (16:00)
[2024-02-06] MEDS: DORZOLAM/TIMOLOL 2.23/0.68% OPHTH DROPS 10ML RIGHTEYE SCH (17:37)
[2024-02-06] MEDS: AMLODIPINE 5MG TABLET PO SCH (17:38)
[2024-02-06] MEDS: ATORVASTATIN CALCIUM 40MG TABLET PO SCH (21:01)
[2024-02-06] MEDS: FAMOTIDINE 20MG TABLET PO SCH (21:01)
[2024-02-06] MEDS: SODIUM CHLORIDE 0.9% 1,000 ML IV SCH (23:41)
[2024-02-07] VITALS: BP 102/83; PULSE 45; RESP 18; TEMP 98.1
[2024-02-07 04:13] VITALS: BP 107/50; PULSE 46; RESP 17; TEMP 98.2
[2024-02-07 08:40] VITALS: BP 134/65; PULSE 61; RESP 16; TEMP 98.1
[2024-02-07 12:00] VITALS: BP 130/74; PULSE 55; RESP 24; TEMP 98
[2024-02-07 12:44] VITALS: RESP 20
[2024-02-07 16:11] VITALS: BP 130/74; PULSE 66; TEMP 98
== END 2024-02-07 16:55 | disposition home or self-care (01) | DRG 192 ==
LOC: CCL 06:28 → 3WST 16:17
PROVIDERS: ADMIT Internal Medicine; ATTEND Internal Medicine
PROC: B2111ZZ Fluoroscopy of Multiple Coronary Arteries using Low Osmolar Contrast (ICD-10-PCS; principal; 2024-02-05)
PROC: 4A023N7 Measurement of Cardiac Sampling and Pressure, Left Heart, Percutaneous Approach (ICD-10-PCS; 2024-02-05)
DX: I13.0 Hypertensive heart and chronic kidney disease with heart failure and stage 1 through stage 4 chronic kidney disease, or unspecified chronic kidney disease (principal); J96.91 Respiratory failure, unspecified with hypoxia; I25.110 Atherosclerotic heart disease of native coronary artery with unstable angina pectoris; I50.33 Acute on chronic diastolic (congestive) heart failure; E11.22 Type 2 diabetes mellitus with diabetic chronic kidney disease; Z99.81 Dependence on supplemental oxygen; E78.5 Hyperlipidemia, unspecified; N18.30 Chronic kidney disease, stage 3 unspecified; C50.919 Malignant neoplasm of unspecified site of unspecified female breast; H54.8 Legal blindness, as defined in USA; I25.2 Old myocardial infarction; I49.5 Sick sinus syndrome; J44.89 Other specified chronic obstructive pulmonary disease; Z79.899 Other long term (current) drug therapy; Z79.82 Long term (current) use of aspirin
CPT/HCPCS: 36415; 71045; 80048; 83880; 85025; 85347; 93306; 93458; 93571; C1769; C1887; C1893; J1644; J1940; J3490; J7030; Q9967

== ENCOUNTER → 2024-03-25 | Day surgery (SDC) | payer MEDICARE, MEDICAID ==
[~2024-03-25] VITALS: Ht 157.5 cm; Wt 72.6 kg
[~2024-03-25] MED LIST changes: +BUPIVACAINE HCL/PF 0.5% (5MG/ML) 10ML ONE; +DEXAMETHASONE 4MG/ML 1ML VIAL ONE; -DIPH25CA83 MT; -DOCU-138 MT; +FENTANYL CITRATE/PF 50MCG/ML 2ML VIAL IV PRN; +FENTANYL CITRATE/PF 50MCG/ML 2ML VIAL ONE; -HYDR-4009 PO; +LACTATED RINGERS 1,000 ML IV SCH; +LIDOCAINE HCL 1% 10 MG/ML 10ML VIAL ONE; +LIDOCAINE HCL 1% 20ML VIAL ONE; +ONDANSETRON HCL 4MG/2ML INJ IV PRN; +ONDANSETRON HCL 4MG/2ML INJ ONE; -P20 MT; +POLYMYXIN B SULFATE 500000 UNITS/VIAL ONE; +POTA-205 PO; +PROPOFOL 200MG/20ML VIAL IV ONE; +SKIN ADHESIVE 0.7 GM EA TOP ONE; -SODI15DR6 RIGHTEYE
[2024-03-25 06:17] LABS: POTASSIUM 3.9 mEq/L (3.5-5.1)
[2024-03-25 06:19] LABS: CALCIUM 9.4 mg/dL (8.7-10.4)
[2024-03-25 06:23] LABS: CREATININE 1.5 mg/dL (0.6-1.0)
[2024-03-25] MEDS: SODIUM CHLORIDE 0.9% 1,000 ML IV SCH (07:10)
[2024-03-25] MEDS: HYDROMORPHONE HCL/PF 2MG/ML INJ IV PRN (09:49)
[2024-03-25 10:29] VITALS: BP 127/57; PULSE 64; RESP 23
[2024-03-25] MEDS: HYDROCODONE/ACETAMINOPHEN 10/325MG TABLET PO NR (10:29)
== END | disposition home or self-care (01) ==
LOC: OR 05:37
PROVIDERS: ATTEND Specialist
DX: N63.11 Unspecified lump in the right breast, upper outer quadrant (principal); E78.5 Hyperlipidemia, unspecified; J44.9 Chronic obstructive pulmonary disease, unspecified; I25.2 Old myocardial infarction; I12.9 Hypertensive chronic kidney disease with stage 1 through stage 4 chronic kidney disease, or unspecified chronic kidney disease; E11.22 Type 2 diabetes mellitus with diabetic chronic kidney disease; N18.9 Chronic kidney disease, unspecified; Z79.82 Long term (current) use of aspirin; Z79.84 Long term (current) use of oral hypoglycemic drugs; Z79.899 Other long term (current) drug therapy; Z98.890 Other specified postprocedural states; Z82.49 Family history of ischemic heart disease and other diseases of the circulatory system; Z83.3 Family history of diabetes mellitus
CPT/HCPCS: 19120; 88305; 80048; 36415; J3010; J3490 ×4; J1100; J2405; J2704; J1170